=== PATIENT | female | born 1955 | race Caucasian/White ===

== ENCOUNTER → 2020-02-07 08:51 | Outpatient (CLI) | payer OTHER, SELFPAY ==
--- NOTE | 2020-02-07 09:02 | NM_ITS ---
CLINICAL: 64-year-old female with reported history of thyroid nodularity. I-123 THYROID UPTAKE and SCAN COMPARISON: None available FINDINGS: The patient was administered a 317 uCi I-123 capsule by mouth. The 4-hour I-123 radioactive iodine thyroidal uptake was calculated to be 16.0 % (normal 5 to 25 %). The 24-hour I-123 radioactive iodine thyroidal uptake was calculated to be 42.4 % (normal 5 to 40 %). The I-123 thyroid scan demonstrates homogeneous radiopharmaceutical concentration throughout both lobes of a vaguely U-shaped thyroid gland. There are no colloidal parenchymal hypofunctioning cold nodules noted in either lobe of the thyroid gland. NM/Thyroid Uptake Single or Mult IMPRESSION: 1. NORMAL 4- and MILDLY ELEVATED 24-hour I-123 radioactive iodine thyroidal uptakes. Correlation with in vitro thyroid function studies is recommended. 2. 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 (Octavio et al, J Nucl Med 32: 1455, 1991). 3. No hypofunctioning-cold nodules are identified. Electronically Signed: Brad Bennett DO at 9:12 EDT Tel , Service support ,
== END ==
PROVIDERS: PCP Internal Medicine; Referring Provider Internal Medicine; Visit Provider Internal Medicine
DX: E04.1 Nontoxic single thyroid nodule (principal)
CPT/HCPCS: 78012; A9516